=== PATIENT | female | born 1995 | race Caucasian/White ===

== ENCOUNTER 2019-03-03 16:02 | Emergency (ER) | payer BC ==
--- NOTE | 2019-03-03 16:22 | Emergency Department Record ---
History of Present Illness - General Chief complaint: Female Urogenital Problem Stated complaint: BLOOD IN URINE,UTI Time Seen by Provider: 03/03/19 16:07 Source: Patient - History of Present Illness Initial comments: The patient states that 03-01-19 she had a low back ache, right greater than left. Yesterday, 03-02-19, she developed frequency, burning on urination, and felt like she was feverish by evening. Today she has dark blood colored urine, 5/10 flank pain and bilateral lower abdominal pain. She has a history of multiple UTI's, and one felt like this does. She has been taking azo for her symptoms. She denies kidney stones in the past. She is [id number] 2 weeks ago. She has a 3 year old daughter. She is sexually active without control. - Related Data Previous Rx's Medication Instructions Recorded Sulfamethoxazole/Trimethoprim 1 each PO BID #19 tablet 03/03/19 [Bactrim Ds Tablet] Allergies Allergy/AdvReac Type Severity Reaction Status Date / Time latex Allergy RASH Verified 03/03/19 16:08 Review of Systems Reviewed: No additional complaints except as noted below Constitutional: Reports: As per HPI. Denies: Chills, Fever, Malaise, Night sweats, Weakness, Weight change Eyes: Reports: As per HPI. Denies: Eye discharge, Eye pain, Photophobia, Vision change ENT: Reports: As per HPI. Denies: Congestion, Dental pain, Ear pain, Epistaxis, Hearing loss, Throat pain Respiratory: Reports: As per HPI. Denies: Cough, Dyspnea, Hemoptysis, Stridor, Wheezes Cardiovascular: Reports: As per HPI. Denies: Arrhythmia, Chest pain, Dyspnea on exertion, Edema, Murmurs, Orthopnea, Palpitations, Paroxysmal nocturnal dyspnea, Rheumatic Fever, Syncope Endocrine: Reports: As per HPI. Denies: Fatigue, Heat or cold intolerance, Polydipsia, Polyuria Gastrointestinal: Reports: As per HPI. Denies: Abdominal pain, Constipation, Diarrhea, Hematemesis, Hematochezia, Melena, Nausea, Vomiting Genitourinary: Reports: As per HPI. Denies: Abnormal menses, Discharge, Dyspa reunia, Dysuria, Frequency, Hematuria, Incontinence, Retention, Urgency Musculoskeletal: Reports: As per HPI. Denies: Arthralgia, Back pain, Gout, Joint swelling, Myalgia, Neck pain Skin: Reports: As per HPI. Denies: Bruising, Change in color, Change in hair/nails, Lesions, Pruritus, Rash Neurological: Reports: As per HPI. Denies: Abnormal gait, Confusion, Headache, Numbness, Paresthesias, Seizure, Tingling, Tremors, Vertigo, Weakness Psychiatric: Reports: As per HPI. Denies: Anxiety, Auditory hallucinations, Depression, Homicidal thoughts, Suicidal thoughts, Visual hallucinations Hematological/Lymphatic: Reports: As per HPI. Denies: Anemia, Blood Clots, Easy bleeding, Easy bruising, Swollen glands Physical Exam - General General Appearance: Alert, Oriented x3, Cooperative, Mild distress - Head Head exam: Normal inspection - Eye Eye exam: Normal appearance, PERRL, EOMI. negative: Conjunctival injection, Nystagmus Pupils: Normal accommodation - ENT ENT exam: Normal exam, Mucous membranes moist, Normal external ear exam, Normal orophraynx, TM's normal bilaterally Ear exam: Normal external inspection. negative: External canal tenderness Nasal Exam: Normal inspection. negative: Discharge, Sinus tenderness Mouth exam: Normal external inspection, Tongue normal Teeth exam: Normal inspection. negative: Dental caries Throat exam: Normal inspection. negative: Tonsillar erythema, Tonsillar exudate - Neck Neck exam: Normal inspection, Full ROM. negative: Lymphadenopathy, Meningismus, Tenderness - Respiratory Respiratory exam: Normal lung sounds bilaterally. negative: Chest wall tenderness, Respiratory distress - Cardiovascular Cardiovascular Exam: Regular rate, Normal rhythm, Normal heart sounds - GI/Abdominal GI/Abdominal exam: Soft, Normal bowel sounds, Tenderness (suprapubic and slight bilateral lower abdominal pain) - Rectal Rectal exam: Deferred - exam: Deferred - Extremities Extremities exam: Normal inspection, Full ROM, Normal capillary refill. negative: Calf tenderness, Pedal edema, Tenderness - Back Back exam: Reports: Normal inspection, CVA tenderness (R) (right side greater t beatty left side), CVA tenderness (L), Full ROM. Denies: Muscle spasm, Rash noted, Tenderness - Neurological Neurological exam: Alert, CN II-XII intact, Normal gait, Oriented X3, Reflexes normal. negative: Motor sensory deficit - Psychiatric Psychiatric exam: Normal affect, Normal mood - Skin Skin exam: Dry, Intact, Normal color, Warm Course - Reevaluation(s) Reevaluation #1: Patient appears comfortable. She is about 4-5/10 currently. Results discussed, awaiting CT reading. Rocephin and fluid bolus infused. 03/03/19 17:36 Reevaluation #2: Results of CT scan discussed with patient. All questions answered. She has a small headache. tylenol offered but she declined stating she will take some when she gets home. She is returning to her home in [place] tomorrow and agrees to follow up with her PCP there to be sure her infection clears. Disc of CD sent with patient. 03/03/19 18:00 Medical Decision Making - Management Options MDM Management: No Additional Work-up Planned - Data Complexity MDM Data: Labs Ordered and/or Reviewed ( UA: 1+bacteria, 0-2 squ. 36-50 WBC, 10- 15 RBC, positive Nitrites, mod. LE.), X-Ray Ordered and/or Reviewed (CT Scan: Small amount of fluid inposterior cul de sac; several small subcapsular cystic structures in spleen noted, either resolving hemorrhagic vs. cystic structures. Clinical correlation recommended per Radiologist.) - Lab Data Result diagrams: 03/03/19 16:55 03/03/19 16:55 Disposition Disposition: Discharge Clinical Impression: Cystitis Disposition: Home, Self-Care Condition: (1) Good Instructions: Urinary Tract Infection in Women (ED) Additional Instructions: Take Bactrim DS twice daily for 10 days. Tylenol alternated with ibuprofen as directed as needed for pain or fevers. Push fluids, rest. Follow up with PCP in [place] in 10 days to be sure infection has cleared. Prescriptions: Sulfamethoxazole/Trimethoprim [Bactrim Ds Tablet] 1 each PO BID #19 tablet Forms: Patient Portal Access Quality - Quality Measures Quality Measures: N/A - Blood Pressure Screening Does Patient Have Any of the Following: No Blood Pressure Classification: Normal BP Reading Systolic Measurement: 113 Diastolic Measurement: 76 Screening for High Blood Pressure: < Normal BP, F/U Not Required > [G8783]
[2019-03-03 16:28] LABS: URINE BILIRUBIN MODERATE (NEGATIVE); URINE BLOOD TRACE-I (NEGATIVE); URINE KETONE TRACE (NEGATIVE); URINE LEUKOCYTE ESTERASE MODERATE (NEGATIVE); URINE NITRITE POSITIVE (NEGATIVE); URINE UROBILINOGEN >=8.0 E.U./dL (0.20 - 1.00)
[2019-03-03 16:35] LABS: URINE APPEARANCE CLOUDY; URINE COLOR BROWN
[2019-03-03 16:36] LABS: HCG,QUALITATIVE URINE NEGATIVE (NEGATIVE); URINE BACTERIA 1+; URINE EPITHELIAL CELLS 0 - 2 (FEW); URINE WBC 36 - 50 (0-2/hpf)
[2019-03-03] MEDS ORDERED: 0.9 % SODIUM CHLORIDE 1,000 ML BAG IV ONE (16:39)
[2019-03-03] MEDS ORDERED: KETOROLAC 30 MG/ML VIAL IVP ONE (16:39)
[2019-03-03] MEDS ORDERED: CEFTRIAXONE SODIUM 1 GM in 0.9 % SODIUM CHLORIDE 100ML 100 ML IVPB ONE (16:52)
[2019-03-03 17:04] LABS: ABSOLUTE NEUTROPHIL COUNT 6.34; BASO % 0.1 % (0-6); EOS % 0.3 % (0-6); GRAN % 73.9 % (47-80); HEMATOCRIT 40.9 % (35.0-47.0); HEMOGLOBIN 13.4 gm/dl (11.6-16.0); LYMPH % 17.7 % (16-45); MEAN CELL VOLUME 92.7 fl (81-97); MEAN CORPUSCULAR HEMOGLOBIN 30.4 pg (27-33); MEAN CORPUSCULAR HGB CONC 32.8 g/dl (32-36); MEAN PLATELET VOLUME 10.9 fl (7.4-10.4); PLATELET COUNT 220 K/uL (130-400); RED BLOOD COUNT 4.41 M/uL (3.80-5.40); RED CELL DISTRIBUTION WIDTH 12.6 % (11.5-14.5); WHITE BLOOD COUNT W/O DIFF 8.6 K/uL (4.2-12.2)
[2019-03-03 17:18] LABS: BLOOD UREA NITROGEN 8 mg/dL (6-20); CREATININE 0.7 mg/dL (0.5-0.9); EST GLOMERULAR FILTRATION RATE > 60 mL/min
[2019-03-03 17:19] LABS: TOTAL PROTEIN 7.4 g/dL (6.6-8.7)
[2019-03-03 17:21] LABS: GLUCOSE,RANDOM 93 mg/dL (74-109)
[2019-03-03 17:23] LABS: ALB/GLOB RATIO 1.6 (1.1-1.8); ALBUMIN 4.5 g/dL (4.0-5.0); ALKALINE PHOSPHATASE 61 U/L (35-104); ALT/SGPT 11 U/L (<33); AST/SGOT 15 U/L (10.0-35.0)
--- NOTE | 2019-03-05 12:15 | CT SCAN REPORT ---
EXAM: CT SCAN OF THE ABDOMEN AND PELVIS WITHOUT CONTRAST HISTORY: PATIENT HAS RIGHT FLANK PAIN AND DARK RED URINE. TECHNIQUE: Serial axial CT scan of the abdomen and pelvis was performed at 2.5 mm intervals from the dome of the diaphragm down to the pubic symphysis without the use of intravenous or oral contrast. No comparison CT's are available. FINDINGS: Lung windows of the lung bases demonstrate no CT evidence of a focal infiltrate or pleural effusion. The visualized heart size and contour is within normal limits. The liver, pancreas, adrenal glands, and gallbladder appear unremarkable. Within the subcapsular region of the superior and inferior poles of the spleen, there are well circumscribed hypodensities. There are several little hypodensities within the superior aspect of the spleen. The largest of these measures approximately 1.5 cm. The lesion at the inferior pole of the spleen measures approximately 2.9 cm. These lesions demonstrate CT units suggestive of cysts. Differential considerations include splenic cysts versus resolving subcapsular splenic hematomas. Clinical correlation is recommended. The bilateral kidneys demonstrate no CT evidence of hydronephrosis or hydroureter. There is no CT evidence of renal or ureteral calculi. The contour and caliber of the noncontrasted abdominal aorta is within normal limits. There is no CT evidence of retroperitoneal, pelvic or inguinal lymphadenopathy. The bowel gas pattern is nonspecific and nonobstructive. There is no CT evidence of free intraperitoneal air. The urinary bladder is unremarkable. The uterus is unremarkable. There is a small amount of free fluid identified within the posterior cul-de-sac. This finding may be the result of hemorrhagic ovarian cyst. If there is further clinical concern then ultrasound examination of the pelvis can be obtained for further evaluation. Bone windows demonstrate no CT evidence of a fracture or dislocation of the visualized osseous structures. IMPRESSION: 1. SMALL AMOUNT OF FREE FLUID IS NOTED WITHIN THE POSTERIOR CUL-DE-SAC WHICH MAY BE THE RESULT OF HEMORRHAGIC OVARIAN CYST. IF THERE IS FURTHER CLINICAL CONCERN THEN ULTRASOUND EXAMINATION OF THE PELVIS CAN BE OBTAINED FOR FURTHER EVALUATION. 2. SEVERAL CYSTIC STRUCTURES ARE IDENTIFIED WITHIN THE SUBCAPSULAR REGION OF THE SUPERIOR AND INFERIOR POLES OF THE SPLEEN. THESE FINDINGS MAY REPRESENT SIMPLE SPLENIC CYSTS VERSYS THE SEQUELA OF RESOLVING HEMATOMAS SURROUNDING THE SPLEEN. CLINICAL CORRELATION IS RECOMMENDED. JOB NUMBER: [id number] [facility]
== END 2019-03-03 18:20 | disposition home or self-care (01) ==
LOC: ER 16:02
DX: N30.01 Acute cystitis with hematuria (principal)
CPT/HCPCS: 74176; 80053; 81001; 81025; 85025; 96365; 96375; 99284; J1885; J7030